=== PATIENT | female | born 1945 | race Caucasian/White ===

== ENCOUNTER 2016-07-19 12:03 | Emergency (ER) | payer MEDICARE ==
--- NOTE | 2016-07-20 10:41 | ER ---
ADMIT: 07/19/2016 RM/LOC: ER [facility] MR#: [id number] [facility] [address] [place], [place] [id number] KENY [address]OFF [address] [place], [place] [id number] Emergency Room Report SEX: F AGE: 71 : 1945 DATE: 07/19/2016 BRIEF ADDENDUM: Please see my T-sheet for complete review of systems, past medical history, and physical exam. CHIEF COMPLAINT: High blood pressure. HISTORY OF PRESENT ILLNESS: This is a pleasant 71-year-old white female, who presents with 2 days duration of concerns about blood pressure. States her blood pressure is usually low. She has been running on the high end diastolically in the 90s and systolically 130s to 140s. Also has noticed increasing lower leg swelling gradually over the past few days. She does have chronic lower leg edema on Lasix. States this was onset about 5 years ago. Denies any known cardiac history. No diabetes. Does take carvedilol for some hypertension and Lasix for the swelling. COURSE IN THE EMERGENCY ROOM: The patient seen and examined. She is afebrile and nontoxic. Blood pressure is all within normal range. No concerns for hypertension today. She does have some lower leg edema in her lower legs as well as some swelling about her hand. Heart is regular rate. No murmur, gallops, or rubs. We got some labs on her. Sodium 143, potassium 4.0, CO2 of 33, BUN 15, creatinine 1.2. BNP was 145. White count 6.4, hemoglobin 12.6, hematocrit 38.0, and platelets 193. IMPRESSION: Lower leg edema. DISPOSITION: Patient is to increase her Lasix to 40 mg p.o. daily for 3 days. Follows up with Ana Rushing this week. Continue to elevate her leg and use compression stockings. Return with any worsening signs or symptoms of shortness of breath, chest pain, increased pain, swelling in the lower legs. Questions sought and answered to the best of my ability and to the patient's satisfaction. Discharged in stable condition. CARLOS EDUARDO Ferguson / Dillon Montoya MD / chuckl JOB #: [id number] CC: Dillon Montoya MD, Attending Physician
== END 2016-07-19 14:10 | disposition home or self-care (01) ==
LOC: ER 12:03
DX: R60.0 Localized edema (principal); I10 Essential (primary) hypertension; G89.29 Other chronic pain; M54.9 Dorsalgia, unspecified; Z90.49 Acquired absence of other specified parts of digestive tract; Z90.710 Acquired absence of both cervix and uterus; Z79.899 Other long term (current) drug therapy

== ENCOUNTER 2016-08-19 16:16 | Emergency (ER) | payer MEDICARE ==
--- NOTE | 2016-08-25 19:54 | ER ---
ADMIT: 08/19/2016 RM/LOC: [facility] MR#: [id number] [address] [address] LU[address] EDUARDOANA[place] [address] Emergency Room Report SEX: F AGE: 71 : 1945 DATE: 08/19/2016 CHIEF COMPLAINT: Weakness. HISTORY OF PRESENT ILLNESS: A 71-year-old female, who presents with 8 hours' duration of increased weakness. States she felt well yesterday. Throughout the day, she has had increasing generalized weakness. No specific hemiplegia. No paresthesias. No visual impairment. She feels weak, has a difficulty standing. Needed a lot of assistance to get here today. She is typically alert and oriented, uses a cane to walk. Denies any fever, chills, sweating, chest pain, headache, altered mental status. She does have some chronic low back pain and some swelling in her ankles. She does take Lasix for this. She states about a week ago, she did feel like she was having an outbreak of herpes zoster on the right side of her face, started taking acyclovir for this which she has done in the past. She has been on this medication for about a week now. COURSE IN THE EMERGENCY ROOM: GENERAL: The patient was seen and examined. She is afebrile and nontoxic. No acute distress. She is somnolent. She is alert, oriented, appropriate with exam. HEENT: Pupils are equal and reactive. Extraocular muscles are intact. Pharynx is nonerythematous. NEUROLOGIC: Cranial nerves are normal as tested. No abnormal [id number] cerebellar testing. Motor and sensation are intact in the upper and lower extremities. NECK: Soft and supple. No lymphadenopathy. LUNGS: Clear to auscultation bilaterally. HEART: Regular. ABDOMEN: Soft and nontender. SKIN: Warm and dry. EXTREMITIES: Nontender. She has no pedal edema. Laboratory studies on her today; white count 12.1, hemoglobin 12.5, hematocrit 38.7, platelets 150. Sodium 144, potassium 3.5, glucose 135, creatinine 1.2. She does have elevated liver enzymes. AST 137, ALT 83, new from previous labs drawn two months prior, possibly related to acyclovir. BNP 446. Cardiac enzymes negative. EKG shows sinus rhythm, rate 86. No ST-T or Q wave abnormalities. Urine significant for hyaline casts. Otherwise, no signs of infection. Chest x-ray shows some atelectasis in the left lower lung base. I did give her a liter of fluids prior to discharge. ADMIT: 08/19/2016 RM/LOC: [facility] MR#: [id number] [id number] [place] [id number] KEN[address] HOFF [address] [place] [address] Emergency Room Report SEX: F AGE: 71 : 1945 IMPRESSION: 1. Dehydration. 2. Transaminitis. 3. Weakness. DISPOSITION: The patient was discharged home. Increase fluids as tolerated. Continue home medications. Monitor for any worsening signs or symptoms. Return with concerns. She is to follow up with her primary care provider this week. Questions sought and answered to the best of my ability and to the patient's satisfaction. She was discharged home in stable condition. I did recommend stopping the acyclovir as I thought this could be contributing to some of her elevated liver enzymes. CARLOS EDUARDO Ferguson / Chris Handley MD / esteban JOB #: [id number] CC: Chris Handley MD, Attending Physician Ana Wolf APRN, Family Physician
== END 2016-08-19 20:10 | disposition home or self-care (01) ==
LOC: ER 16:16
DX: E86.0 Dehydration (principal); R74.0 Nonspecific elevation of levels of transaminase and lactic acid dehydrogenase [LDH]; R53.1 Weakness; I10 Essential (primary) hypertension; Z88.8 Allergy status to other drugs, medicaments and biological substances; Z79.899 Other long term (current) drug therapy